=== PATIENT | female | born 1990 | race Caucasian/White ===

== ENCOUNTER 2021-05-20 | Emergency (ER) | payer OTHER, SELFPAY ==
[2021-05-20 01:05] VITALS: BP 137/83; PULSE 84; RESP 16; TEMP 36.2; O2SAT 99; BMI 41.6
[2021-05-20 02:14] VITALS: BP 134/93; PULSE 111; RESP 18
--- NOTE | 2021-05-20 02:24 | ED.URI ---
HPI - URI/Sore Throat General Chief Complaint: Upper Respiratory Symptoms Stated Complaint: ear infection, Sob approx 5 days Time Seen by Provider: 05/20/21 00:18 Source: patient Mode of arrival: ambulatory History of Present Illness HPI Narrative: 30-year-old female with history of sinus infections presents with complaints of congestion and sinus pressure since Tuesday as well as noting a fever of 1 0 to on both Tuesday and Tuesday without associated nausea, vomiting, cough, urinary symptoms and now states that she feels the pressure within her ears and this been accompanied by sore throat. Related Data Previous Rx's Medication Instructions Recorded amoxicillin-pot clavulanate 1 tab PO Q12H 10 Days #20 tab 05/20/21 [Augmentin] Allergies Allergy/AdvReac Type Severity Reaction Status Date / Time No Known Allergies Allergy Verified 05/20/21 01:05 Review of Systems Review of Systems: Pertinent positives and negatives as stated in HPI 10 point review of systems is otherwise negative. PMFSH Past Medical History Source: nursing notes reviewed Social History Social History Advance Directives: No Advance Directives Information Provided: No Patient : No Physical Exam Vital Signs: Vital Signs: Last Vital Signs Temp 97.2 F 05/20/21 01:05 Pulse 111 H 05/20/21 02:14 Resp 18 05/20/21 02:14 BP 134/93 H 05/20/21 02:14 Pulse Ox 99 05/20/21 01:05 Body Mass Index 41.6 VITAL SIGNS: Reviewed. GENERAL: Well developed, well nourished, in no acute distress. HEAD: Normocephalic/atraumatic EYES: PERRLA, EOMI EARS: Ext canals without abnormality, TMs non-bulging and non-erythematous NOSE: Nares patent bilateral without inflamed turbinates, but audible nasal congestion noted OROPHARYNX: no oral lesions noted, posterior pharynx erythematous NECK: Supple, no adenopathy LUNGS: Normal breath sounds. SpO2<99> CARDIOVASCULAR: Regular rate and rhythm without noted murmurs ABDOMEN: Obese, Soft, non-tender, non-distended with bowel sounds. SKIN: Inspection of the skin reveals no rashes NEUROLOGIC: Alert and oriented x 4. Strength and sensation to light touch were grossly intact x 4. Course Course Course Narrative: 30-year-old female with history and clinical presentation suggestive of sinusitis, nasal congestion and doubt strep pharyngitis. No evidence of AOM. Review of all investigations negative for acute findings and patient was discharged with presumptive bacterial sinusitis and a script. MDM - URI/Sore Throat Lab Data Labs: Lab Results 05/20/21 Range/Units 02:13 S. pyogenes GrpA STEPHANIE Negative (Negative) Discharge Plan Discharge Clinical Impression: Sinusitis Patient Disposition: Home, Self-Care Instructions: Sinusitis (ED) Additional Instructions: 1. Resume all home medications as prescribed. 2. Follow-up with primary care provider in the next 2-3 days for re-evaluation. Return to the ER for acute worsening of symptoms. Prescriptions: New amoxicillin-pot clavulanate [Augmentin] 875-125 mg tablet 1 tab PO Q12H 10 Days Qty: 20 RF: 0 Referrals: Physician,Unknown [Primary Care Provider] - 2 days
[2021-05-20 02:33] LABS: Strep A Nucleic Acid Negative (Negative)
[2021-05-20] MEDS: Amoxicillin/Potassium Clav 875 MG TABLET PO (02:57)
== END 2021-05-20 03:02 | disposition home or self-care (01) ==
PROVIDERS: Emergency Provider Student in an Organized Health Care Education/Training Program
DX: J32.9 Chronic sinusitis, unspecified (principal); J02.9 Acute pharyngitis, unspecified
CPT/HCPCS: 36415; 87651; 99283